=== PATIENT | female | born 1965 | race Caucasian/White ===

== ENCOUNTER 2016-11-14 20:36 | Emergency (ER) | payer OTHER | END 2016-11-14 22:57 | disposition home or self-care (01) | LOC: ER 20:36 | DX: S46.912A Strain of unspecified muscle, fascia and tendon at shoulder and upper arm level, left arm, initial encounter (principal); S13.9XXA Sprain of joints and ligaments of unspecified parts of neck, initial encounter; S49.92XA Unspecified injury of left shoulder and upper arm, initial encounter; S79.911A Unspecified injury of right hip, initial encounter; M25.551 Pain in right hip; F17.200 Nicotine dependence, unspecified, uncomplicated; Z88.2 Allergy status to sulfonamides; V49.40XA Driver injured in collision with unspecified motor vehicles in traffic accident, initial encounter ==

== ENCOUNTER 2017-01-24 21:10 | Emergency (ER) | payer OTHER | END 2017-01-24 23:20 | disposition home or self-care (01) | LOC: ER 21:10 | DX: S01.01XA Laceration without foreign body of scalp, initial encounter (principal); F17.200 Nicotine dependence, unspecified, uncomplicated; W01.198A Fall on same level from slipping, tripping and stumbling with subsequent striking against other object, initial encounter | CPT/HCPCS: 96372 ==